=== PATIENT | male | born 1940 | race Caucasian/White ===

== ENCOUNTER → 2017-04-22 09:17 | Outpatient (CLI) | payer MEDICARE, OTHER ==
[2016-01-07 17:34] VITALS: BMI 28.2
[~2017-04-22 09:17] MED LIST: FISH OIL 1,0001 CA1 PO; LEXAPRO10 MG PO; LUNESTA1 MG PO; MEDROL2 MG PO; OMNICEF300 MG PO; PLAVIX75 MG PO; VITAMIN D31000 UNIT PO
== END | disposition home or self-care (01) ==
LOC: D.CT 09:17
DX: S00.93XA Contusion of unspecified part of head, initial encounter (principal)

== ENCOUNTER → 2017-04-27 14:22 | Outpatient (CLI) | payer MEDICARE, OTHER ==
[2016-01-07 17:34] VITALS: BMI 28.2
== END | disposition home or self-care (01) ==
LOC: D.MRI 14:22
DX: S12.9XXA Fracture of neck, unspecified, initial encounter (principal)

== ENCOUNTER 2017-08-18 16:01 | Emergency (ER) | payer MEDICARE, OTHER ==
[2016-01-07 17:34] VITALS: BMI 28.2
[2017-08-18 16:49] LABS: BASOPHILS 0.3 % (0-2); EOSINOPHILS 1.8 % (0-7); HEMATOCRIT 44.2 % (42.0-54.0); IMMATURE GRANULOCYTES 0.9 % (0-5); LYMPHOCYTES 25.6 % (15-50); MCH 31.1 pg (26.0-34.0); MCHC 33.9 g/dL (31.0-37.0); MCV 91.7 fL (80.0-100.0); MEAN PLATELET VOLUME 10.4 fL (7.4-10.4); MONOCYTES 12.2 % (2-11); NEUTROPHILS 59.2 % (40-80); RBC 4.82 10x6/uL (4.20-6.10); RDW 13.3 % (11.5-14.5); WBC 7.8 10x3/uL (4.8-10.8)
[2017-08-18 17:00] LABS: APTT 29.5 SECONDS (22.8-39.4); INR 1.01 (0.85-1.17); PROTIME 13.1 SECONDS (11.6-15.0)
[2017-08-18 17:06] LABS: ALBUMIN 3.9 g/dL (3.4-5.0); BILIRUBIN - TOTAL 0.35 mg/dL (0.2-1.3); CALCIUM 9.2 mg/dL (8.5-10.1); CARBON DIOXIDE 27.2 mmol/L (21.0-32.0); CREATININE - SERUM 1.5 mg/dL (0.6-1.3); POTASSIUM - SERUM 4.2 mmol/L (3.5-5.1); PROTEIN - SERUM 7.2 g/dL (6.4-8.2)
[2017-08-18 17:13] LABS: PLATELET COUNT 176 10x3/uL (130-400)
== END 2017-08-18 19:05 | disposition home or self-care (01) ==
LOC: D.ER 16:01
PROVIDERS: Emergency Medicine
DX: R53.1 Weakness (principal); Z86.73 Personal history of transient ischemic attack (TIA), and cerebral infarction without residual deficits; G45.9 Transient cerebral ischemic attack, unspecified; R00.1 Bradycardia, unspecified